=== PATIENT | female | born 1955 | race Caucasian/White ===

== ENCOUNTER 2022-02-27 12:49 | Outpatient (CLI) | payer BC, SELFPAY ==
--- OUTSIDE RECORDS SUMMARY | 2022-02-27 12:50 | XMS_ITS | Encounter Summary ---
:1955 Author Organization [place] Address [address] [place] [address] Care Team Providers Name Role Phone Delroy Frederick MD Primary Care Provider Reason for Referral Diagnostic Imaging Mammo (Routine) - Pending Review Specialty Diagnoses / Procedures Referred By Contact Refer red To Contact Diagnoses Other screening mammogram Cait Sams MD Procedures MA Screen Bilateral w/Christopher [facility] [address] [place] [address] Referral ID Status Reason Start Date Expiration Date Visits V isits Requested Authorized [id number] Pending 05/19/2021 05/19/2022 1 1 Review ATE CHANGE ANALYST Reason for Visit Diagnostic Imaging Mammo (Routine) - Pending Review Specialty Diagnoses / Procedures Referred By Contact Refer red To Contact Diagnoses Other screening mammogram Cait Sams MD Procedures MA Screen Bilateral w/Christopher [facility] [address] [place] [address] Referral ID Status Reason Start Date Expiration Date Visits V isits Requested Authorized [id number] Pending 05/19/2021 05/19/2022 1 1 Review Encounter Details Date Type Department Care Team Description 07/02/2021 Hospital Encounter [facility] Cait Jiménez [facility] Breast [place] MD Abhijit mammogram [address] [facility] [address] CONSULT [place], [place] [address] [address] [place] [address] [place] [address] Social History Tobacco Use Types Packs/Day Years Used Date Never Assessed Sex Assigned at Date Recorded Not on file COVID-19 Exposure Response Date Recorded In the last month, have you been in contact with No / Unsure 07/02/2021 8:12 AM CLIMATE CHANGE ANALYST someone who was confirmed or suspected to have Coronavirus / COVID-19? documented as of this encounter Plan of Treatment Not on filedocumented as of this encounter Procedures Procedure Name Priority Date/Time Associated Diagnosis Comme nts MA SCREENING Routine 07/02/2021 8:34 AM Other screening Result s for this BILATERAL W/ CHRISTOPHER CLIMATE CHANGE ANALYST mammogram procedure are in the results section. documented in this encounter Results MA Screen Bilateral w/Christopher (07/02/2021 8:34 AM CLIMATE CHANGE ANALYST) Anatomical Region Laterality Modality Breast Bilateral Mammography Specimen (Source) Anatomical Location Collection Method / Collectio n Time Received Time / Laterality Volume Narrative 07/02/2021 10:02 AM CLIMATE CHANGE ANALYST BILATERAL FULL FIELD DIGITAL SCREENING MAMMOGRAM WITH TOMOSYNTHESIS Performed on: 07/02/21 Compared to: 05/13/2020, 02/09/2017, 08/2014, and 05/19/2012 Technique: ??This study was evaluated wi th the assistance of Computer-Aided Detection. ??Breast Tomosynthesis was us ed in interpretation. Findings: The breasts are heterogeneousl y dense, which may obscure small masses. ??There is no radiographic evide nce of malignancy. IMPRESSION: ACR BI-RADS Category 1: Nega tive RECOMMENDED FOLLOW-UP: Annual routine sc reening mammogram The results and recommendations of this examination will be communicated to the patient. Cait Sams MD IMG MAMMOGRAPHY ORDERABLES documented in this encounter Visit Diagnoses Diagnosis Other screening mammogram documented in this encounter Care Teams Piece Marker Small Arms Relationship Specialty Start Date End Date Delroy Frederick MD PCP - General Family Practice 04/15/11 [facility] [address] [place] [address] documented as of this encounter
--- OUTSIDE RECORDS SUMMARY | 2022-02-27 12:50 | XMS_ITS | Encounter Summary ---
:1955 Author Organization [place] Address [address] [place] [address] Care Team Providers Name Role Phone Delroy Frederick MD Primary Care Provider Encounter Details Date Type Department Care Team Description 07/02/2021 Travel Social History Tobacco Use Types Packs/Day Years Used Date Never Assessed Sex Assigned at Date Recorded Not on file COVID-19 Exposure Response Date Recorded In the last month, have you been in contact with No / Unsure 07/02/2021 8:12 AM SOURCING COORDINATOR someone who was confirmed or suspected to have Coronavirus / COVID-19? documented as of this encounter Plan of Treatment Not on filedocumented as of this encounter Visit Diagnoses Not on filedocumented in this encounter Care Teams Order Department Supervisor Relationship Specialty Start Date End Date Delroy Frederick MD PCP - General Family Practice 04/15/11 [facility] [address] [place] [address] documented as of this encounter
--- OUTSIDE RECORDS SUMMARY | 2022-02-27 12:51 | XMS_ITS | Encounter Summary ---
:1955 Author Organization [place] Address [address] [place] [address] Care Team Providers Name Role Phone Delroy Frederick MD Primary Care Provider Encounter Details Date Type Department Care Team Description 05/13/2020 Travel Social History Tobacco Use Types Packs/Day Years Used Date Never Assessed Sex Assigned at Date Recorded Not on file COVID-19 Exposure Response Date Recorded In the last month, have you been in contact with No / Unsure 05/13/2020 1:59 PM GENERAL TELLER someone who was confirmed or suspected to have Coronavirus / COVID-19? documented as of this encounter Plan of Treatment Not on filedocumented as of this encounter Visit Diagnoses Not on filedocumented in this encounter Care Teams Title Searcher Relationship Specialty Start Date End Date Delroy Frederick MD PCP - General Family Practice 04/15/11 [facility] [address] [place] [address] documented as of this encounter
--- OUTSIDE RECORDS SUMMARY | 2022-02-27 12:51 | XMS_ITS | Encounter Summary ---
:1955 Author Organization [place] Address [address] [place] [address] Care Team Providers Name Role Phone Unavailable Primary Care Provider Unavailable Encounter Details Date Type Department Care Team Description 12/09/2007 Results [facility] Cait Sams MD Hospital Results [facility] [address] [place] [address] (Wo rk) Social History Tobacco Use Types Packs/Day Years Used Date Never Assessed Sex Assigned at Date Recorded Not on file documented as of this encounter Plan of Treatment Not on filedocumented as of this encounter Procedures Procedure Name Priority Date/Time Associated Comments Diagnosis C LT SONO BREAST Routine 12/09/2007 9:36 AM Resul ts for this CDT procedure are i n the results section. HC CAD, DIAGNOSTIC Routine 12/09/2007 8:43 AM Res ults for this MAMMO, W/WO CDT procedure are i n DIGITIZATION the results section. documented in this encounter Results LT SONO BREAST (12/09/2007 9:36 AM CDT) Specimen (Source) Anatomical Collection Method Collection Time Re ceived Time Location / / Volume Laterality 12/09/2007 9:36 AM CDT Impressions RADIOLOGY RESULTS - 12/11/2007 9:57 AM C DT DIAGNOSTIC MAMMOGRAM, BILATERAL; ULTRASOUND LEFT BREAST - 12/09/2007 HISTORY: Pain upper outer left breast. COMPARISON: No prior comparisons. FINDINGS: Breast parenchyma is heterogen eously dense. Routine mammographic views demonstrate a BB over lying the area of the patient's pain upper outer quadrant left breast. No suspicious mammographic abnormalities are appreciat ed in either breast. Ultrasound examination in the area of th e patient's pain demonstrates no underlying cyst, mass or area of post erior acoustic shadowing. Findings discussed with the patient at t he time of the exam. The patient is to follow up with primary phy sician for further followup of left breast pain. Followup screening lara mogram recommended in one year. IMPRESSION: BI-RADS 1, NEGATIVE Cait Sams MD SPECIAL IMAGING STUDIES Performing Organization Address [facility] Phon e Number RADIOLOGY RESULTS COMPUTER AIDED MAMMOGRAPHY, DIAGNOSTIC (12/09/2007 8:43 AM CDT) Specimen (Source) Anatomical Collection Method Collection Time Re ceived Time Location / / Volume Laterality 12/09/2007 8:43 AM CDT Impressions RADIOLOGY RESULTS - 12/11/2007 9:57 AM C DT DIAGNOSTIC MAMMOGRAM, BILATERAL; ULTRASOUND LEFT BREAST - 12/09/2007 HISTORY: Pain upper outer left breast. COMPARISON: No prior comparisons. FINDINGS: Breast parenchyma is heterogen eously dense. Routine mammographic views demonstrate a BB over lying the area of the patient's pain upper outer quadrant left breast. No suspicious mammographic abnormalities are appreciat ed in either breast. Ultrasound examination in the area of th e patient's pain demonstrates no underlying cyst, mass or area of post erior acoustic shadowing. Findings discussed with the patient at t he time of the exam. The patient is to follow up with primary phy sician for further followup of left breast pain. Followup screening lara mogram recommended in one year. IMPRESSION: BI-RADS 1, NEGATIVE Cait Sams MD MAMMOGRAPHY Performing Organization Address [facility] Phon e Number RADIOLOGY RESULTS documented in this encounter Visit Diagnoses Not on filedocumented in this encounter
--- OUTSIDE RECORDS SUMMARY | 2022-02-27 12:51 | XMS_ITS | Encounter Summary ---
:1955 Author Organization [place] Address [address] [place] [address] Care Team Providers Name Role Phone Delroy Frederick MD Primary Care Provider Reason for Visit (Routine) - Closed Specialty Diagnoses / Procedures Referred By Contact Refer red To Contact Radiology / Radiology. Procedures Breast Center MA SCREENING BILATERAL [address] [place] [address] Phone: Fax: Referral ID Status Reason Start Date Expiration Date Visits Requ ested Visits Authorized [id number] Closed 01/27/2017 01/27/2018 1 1 Encounter Details Date Type Department Care Team Description 02/09/2017 Hospital Encounter [facility] Cait Sams for screening [facility] Breast [place] MD Abhijit mammogram [address] [facility] [address] CONSULT [place], [place] [address] [address] [place] [address] [place] [address] Social History Tobacco Use Types Packs/Day Years Used Date Never Assessed Sex Assigned at Date Recorded Not on file documented as of this encounter Plan of Treatment Not on filedocumented as of this encounter Procedures Procedure Name Priority Date/Time Associated Diagnosis Comme nts MA SCREENING Routine 02/09/2017 11:21 AM Visit for screening R esults for this BILATERAL W/ CHRISTOPHER CDT mammogram procedure are in the results section. documented in this encounter Results MA Screen Bilateral w/Christopher (02/09/2017 11:21 AM CDT) Anatomical Region Laterality Modality Breast Bilateral Mammography Specimen (Source) Anatomical Location Collection Method / Collectio n Time Received Time / Laterality Volume Impressions 02/09/2017 11:29 AM CDT IMPRESSION: BI-RADS CATEGORY: 1 - ??NEGATIVE. RECOMMENDED FOLLOW-UP: Annual Mammograph y. The patient will be notified of the resu lts. WHITNEY KNOX MD Narrative 02/09/2017 11:29 AM CDT Examination: Bilateral digital screening mammography with computer aided detection including digital breast tomosynthesis, 02/09/2017 11:21 AM. Comparison: 05/16/2015, 04/16/2011 History: No current breast concerns. Mot her and sister with breast cancer. BREAST DENSITY: Scattered fibroglandular densities. COMMENTS: ??No suspicious finding. Procedure Note Whitney Knox MD - 02/09/2017 Examination: Bilateral digital screening mammography with computer aided detection including digital breast tomosynthesis, 02/09/2017 11:21 AM. Comparison: 05/16/2015, 04/16/2011 History: No current breast concerns. Mot her and sister with breast cancer. BREAST DENSITY: Scattered fibroglandular densities. COMMENTS: No suspicious finding. IMPRESSION: BI-RADS CATEGORY: 1 - NEGATI VE. RECOMMENDED FOLLOW-UP: Annual Mammograph y. The patient will be notified of the resu lts. WHITNEY KNOX MD Cait Sams MD IMG MAMMOGRAPHY ORDERABLES documented in this encounter Visit Diagnoses Diagnosis Visit for screening mammogram Other screening mammogram documented in this encounter Care Teams Operations Administrative Assistant Relationship Specialty Start Date End Date Delroy Frederick MD PCP - General Family Practice 04/15/11 [facility] [address] [place] [address] documented as of this encounter
--- OUTSIDE RECORDS SUMMARY | 2022-02-27 12:51 | XMS_ITS | Encounter Summary ---
:1955 Author Organization [place] Address [facility] [place] [address] Care Team Providers Name Role Phone Delroy Frederick MD Primary Care Provider Encounter Details Date Type Department Care Team Description 04/15/[address] [facility] Ofe Mon (Primary Dx) Breast Center [address] [facility], [address] [place] [address] Social History Tobacco Use Types Packs/Day Years Used Date Never Assessed Sex Assigned at Date Recorded Not on file documented as of this encounter Plan of Treatment Not on filedocumented as of this encounter Visit Diagnoses Diagnosis Mastodynia - Primary documented in this encounter Care Teams Post Form Remover Relationship Specialty Start Date End Date Delroy Frederick MD PCP - General Family Practice 04/15/11 [facility] [address] [place] [address] documented as of this encounter
--- OUTSIDE RECORDS SUMMARY | 2022-02-27 12:51 | XMS_ITS | Encounter Summary ---
:1955 Author Organization [place] Address [address] [place] [address] Care Team Providers Name Role Phone Delroy Frederick MD Primary Care Provider Reason for Referral Diagnostic Imaging Mammo (Routine) - Closed Specialty Diagnoses / Procedures Referred By Contact Refer red To Contact Diagnoses Visit for screening mammogram Cait Sams MD Procedures MA Screen Bilateral w/Christopher [facility] [address] [place] [address] Referral ID Status Reason Start Date Expiration Date Visits Requ ested Visits Authorized [id number] Closed 04/17/2020 04/17/2021 1 1 SITE PROJECT MANAGER Reason for Visit Diagnostic Imaging Mammo (Routine) - Closed Specialty Diagnoses / Procedures Referred By Contact Refer red To Contact Diagnoses Visit for screening mammogram Cait Sams MD Procedures MA Screen Bilateral w/Christopher [facility] [address] [place] [address] Referral ID Status Reason Start Date Expiration Date Visits Requ ested Visits Authorized [id number] Closed 04/17/2020 04/17/2021 1 1 Encounter Details Date Type Department Care Team Description 05/13/2020 Hospital Encounter [facility] Cait Sams it for screening [facility] Breast [place] MD Abhijit mammogram [address] [place] [address] [address] [place] [address] [place] [address] Social History Tobacco Use Types Packs/Day Years Used Date Never Assessed Sex Assigned at Date Recorded Not on file COVID-19 Exposure Response Date Recorded In the last month, have you been in contact with No / Unsure 05/13/2020 1:59 PM WEB SITE PROJECT MANAGER someone who was confirmed or suspected to have Coronavirus / COVID-19? documented as of this encounter Plan of Treatment Not on filedocumented as of this encounter Procedures Procedure Name Priority Date/Time Associated Diagnosis Comme nts MA SCREENING Routine 05/13/2020 2:32 PM Visit for screening Re sults for this BILATERAL W/ CHRISTOPHER WEB SITE PROJECT MANAGER mammogram procedure are in the results section. documented in this encounter Results MA Screen Bilateral w/Christopher (05/13/2020 2:32 PM WEB SITE PROJECT MANAGER) Anatomical Region Laterality Modality Breast Bilateral Mammography Specimen (Source) Anatomical Location Collection Method / Collectio n Time Received Time / Laterality Volume Impressions 05/13/2020 3:46 PM WEB SITE PROJECT MANAGER IMPRESSION: BI-RADS CATEGORY: 1 - ??Negative RECOMMENDED FOLLOW-UP: Annual Mammograph y. Exam results letter mailed to patient. MARCO ANTONIO MORGAN MD Narrative 05/13/2020 3:46 PM WEB SITE PROJECT MANAGER SCREENING MAMMOGRAM, BILATERAL, DIGITAL w/CAD AND TOMOSYNTHESIS - 05/13/2020 2:32 PM BREAST SYMPTOMS: No current breast compl aints. COMPARISON: ??02/09/2017, 05/20/2012. BREAST DENSITY: Heterogeneously dense. COMMENTS: No findings of suspicion for m alignancy. Procedure Note Marco Antonio Morgan MD - 05/13/2020For matting of this note might be different from the original. SCREENING MAMMOGRAM, BILATERAL, DIGITAL w/CAD AND TOMOSYNTHESIS - 05/13/2020 2:32 PM BREAST SYMPTOMS: No current breast compl aints. COMPARISON: 02/09/2017, 05/20/2012. BREAST DENSITY: Heterogeneously dense. COMMENTS: No findings of suspicion for m alignancy. IMPRESSION: BI-RADS CATEGORY: 1 - Negati ve RECOMMENDED FOLLOW-UP: Annual Mammograph y. Exam results letter mailed to patient. MARCO ANTONIO MORGAN MD Cait Sams MD IMG MAMMOGRAPHY ORDERABLES documented in this encounter Visit Diagnoses Diagnosis Visit for screening mammogram Other screening mammogram documented in this encounter Care Teams Center Human Resources Manager Relationship Specialty Start Date End Date Delroy Frederick MD PCP - General Family Practice 04/15/11 [facility] [address] [place] [address] documented as of this encounter
--- OUTSIDE RECORDS SUMMARY | 2022-02-27 12:51 | XMS_ITS | Encounter Summary ---
:1955 Author Organization [place] Address [address] [place] [address] Care Team Providers Name Role Phone Delroy Frederick MD Primary Care Provider Reason for Visit (Routine) - Closed Specialty Diagnoses / Procedures Referred By Contact Refer red To Contact Radiology / Radiology. Diagnoses prev epic christopher info given Breast Center Procedures MA SCREENING DIGITAL BILATERAL [address] [place] [address] Phone: Fax: Referral ID Status Reason Start Date Expiration Date Visits Requ ested Visits Authorized [id number] Closed 05/15/2015 05/02/2016 1 1 Encounter Details Date Type Department Care Team Description 05/16/2015 Hospital Encounter [facility] Cait Sams for screening [facility] Breast [place] MD Abhijit mammogram [address] [facility] [address] CONSULT [place], [place] [address] [place] [address] [place] [address] [place] [address] Social History Tobacco Use Types Packs/Day Years Used Date Never Assessed Sex Assigned at Date Recorded Not on file documented as of this encounter Plan of Treatment Not on filedocumented as of this encounter Procedures Procedure Name Priority Date/Time Associated Diagnosis Comme nts MA SCREENING Routine 05/16/2015 9:29 AM Visit for screening Re sults for this BILATERAL W/ CHRISTOPHER ANKLE PATCH MOLDER mammogram procedure are in the results section. documented in this encounter Results MA Screen Bilateral w/Christopher (05/16/2015 9:29 AM ANKLE PATCH MOLDER) Anatomical Region Laterality Modality Breast Bilateral Mammography Specimen (Source) Anatomical Location Collection Method / Collectio n Time Received Time / Laterality Volume Impressions 05/16/2015 9:54 AM ANKLE PATCH MOLDER IMPRESSION: BI-RADS CATEGORY: 1 - ??NEGATIVE. RECOMMENDED FOLLOW-UP: Annual Mammograph y Exam results letter mailed to patient. HILDA KHAN MD Narrative 05/16/2015 9:54 AM ANKLE PATCH MOLDER SCREENING MAMMOGRAM, BILATERAL, DIGITAL w/CAD w/TOMOSYNTHESIS - 05/16/2015 9:29 AM. BREAST SYMPTOMS: No current breast compl aints. COMPARISON: ??05/20/12, 01/31/10. BREAST DENSITY: Extremely dense. COMMENTS: No findings of suspicion for m alignancy. ? Procedure Note Hilda Khan MD - 5 SCREENING MAMMOGRAM, BILATERAL, DIGITAL w/CAD w/TOMOSYNTHESIS - 05/16/2015 9:29 AM. BREAST SYMPTOMS: No current breast compl aints. COMPARISON: 05/20/12, 01/31/10. BREAST DENSITY: Extremely dense. COMMENTS: No findings of suspicion for m alignancy. IMPRESSION IMPRESSION: BI-RADS CATEGORY: 1 - NEGATI VE. RECOMMENDED FOLLOW-UP: Annual Mammograph y Exam results letter mailed to patient. HILDA KHAN MD Cait Sams MD IMG MAMMOGRAPHY ORDERABLES documented in this encounter Visit Diagnoses Diagnosis Visit for screening mammogram Other screening mammogram documented in this encounter Care Teams Public Welfare Worker Relationship Specialty Start Date End Date Delroy Frederick MD PCP - General Family Practice 04/15/11 [facility] [address] [place] [address] documented as of this encounter
--- OUTSIDE RECORDS SUMMARY | 2022-02-27 12:51 | XMS_ITS | Encounter Summary ---
:1955 Author Organization [place] Address [address] [place] [address] Care Team Providers Name Role Phone Delroy Frederick MD Primary Care Provider Reason for Visit (Routine) - Closed Specialty Diagnoses / Procedures Referred By Contact Refer red To Contact Radiology Diagnoses US BREAST UNI LEFT* Procedure Notes: Left breast and axillary pain. Breast Center Procedures RADIOLOGY [address], [address] [place], [place] [address] Phone: Fax: Referral ID Status Reason Start Date Expiration Date Visits Requ ested Visits Authorized [id number] Closed 04/15/2011 04/14/2012 1 1 Encounter Details Date Type Department Care Team Description 04/16/[address] [facility] Cait stuart MD Mastodynia Breast Center [facility] [address] CON[address] [address] [place] [phone] [address] (Wo rk) Social History Tobacco Use Types Packs/Day Years Used Date Never Assessed Sex Assigned at Date Recorded Not on file documented as of this encounter Plan of Treatment Not on filedocumented as of this encounter Procedures Procedure Name Priority Date/Time Associated Diagnosis Comme nts US BREAST LT Routine 04/16/2011 11:19 AM Mastodynia Results for this CDT procedure are i n the results section . documented in this encounter Results US breast lt* (04/16/2011 11:19 AM CDT) Anatomical Region Laterality Modality Breast Left Ultrasound Specimen (Source) Anatomical Collection Method Collection Time Re ceived Time Location / / Volume Laterality 04/16/2011 11:19 AM CDT Impressions 04/16/2011 12:05 PM CDT DIAGNOSTIC MAMMOGRAM BILATERAL DIGITAL w /CAD ?? ULTRASOUND LEFT ??BREAST ??April 16 011. HISTORY: Tenderness extending from the l eft axilla to the 6:00 position of the left breast. COMPARISON: ??01/31/2010. 12/20/2006. BREAST PARENCHYMA: ??Extremely dense. ?? Mammography compromised. FINDINGS: Bilateral mammogram is normal. No mammographic or sonographic abnormality identified in th e outer left breast from the axilla to the 6:00 position in the regio n of pain. Any further evaluation should be based on clinical f indings and clinical suspicion. IMPRESSION: BI-RADS-1. ??NEGATIVE. Cait Sams MD IMG US ORDERABLES documented in this encounter Visit Diagnoses Diagnosis Mastodynia documented in this encounter Care Teams Glass Finisher Relationship Specialty Start Date End Date Delroy Frederick MD PCP - General Family Practice 04/15/11 [facility] [address] [place] [address] documented as of this encounter
--- OUTSIDE RECORDS SUMMARY | 2022-02-27 12:51 | XMS_ITS | Encounter Summary ---
:1955 Author Organization [place] Address [facility] [place] [address] Care Team Providers Name Role Phone Unavailable Primary Care Provider Unavailable Encounter Details Date Type Department Care Team Description 09/21/2009 Emergency room [facility] Sarah Chavira MD [facility] Results [facility] [address] [place], [place] [id number] (Wo rk) Social History Tobacco Use Types Packs/Day Years Used Date Never Assessed Sex Assigned at Date Recorded Not on file documented as of this encounter Progress Notes Fany Chavira - 10/04/2009 6:41 PM CDT FINAL CHIEF COMPLAINT: Toe pain. HISTORY OF PRESENT ILLNESS: Toshia Landin is a 54-year-old female who says that she has an ingrown toenail. She says she was trying to get some of the nail out but now it has become more swollen andpainful. She says it is her right first toe on the more lateral aspect of it. She has not noticed any discharge from it. No fevers or chills and no other toes that are bothering her. REVIEW OF SYSTEMS: All other systems reviewed and negative. PAST MEDICAL HISTORY: Hypothyroidism and mitral valve prolapse. MEDICATIONS: Synthroid. ALLERGIES: Penicillin. SOCIAL HISTORY: She is a nonsmoker, occasional alcohol use, no drug use. PHYSICAL EXAMINATION: VITAL SIGNS: Blood pressure 138/76, pulse 77, respirations 16, temperature 97.5 and pulse oximetry 98% on room air. EXTREMITIES: On examination of her right foot, there is swelling over the more lateral aspect of the toe in the region of the distal toe consistent with an ingrown toenail and there is some swelling that is pressing into this part of the skin. She does have pain over this area. There is some mild redness. There is no discharge or streaking up the leg. There is no pain or swelling on the more medial aspect of the first toe. There are no other problems in the rest of the toes. There isgood dorsalis pedis and posterior tibial pulse on the right foot, normal range of motion of the ankle, knee and hip. Left leg has a normal exam. HOSPITAL COURSE: I did talk to her about removing a small aspect of the lateral aspect of the nail to help remove this toenail which will help the symptoms and she did agree to this. The patient's toedid have an additional block done with 0.5% bupivacaine, approximately 3 cc was used. She was still having some pain, so another block was done with lidocaine 1% and she did have good anesthesia. At this point, a small portion of the lateral aspect of the nail was removed and we removed the ingrown portion. The area was cleaned out. There was no purulent drainage. It was then cleaned and dressed withantibiotic ointment and a gauze dressing. I will put her on Keflex for infection and Percocet for pain. She should keep it clean and dry and have the wound rechecked in the next week. Return if increasing pain, swelling, fever or redness. ASSESSMENT: Right first toe ingrown toenail. Electronically signed on 10/04/2009 18:41 by FANY CHAVIRA MD MT: [id number] Name: TOSHIA LANDIN Account: [id number] : 1955 Visit Date: 09/21/2009 Document: [id number] documented in this encounter Plan of Treatment Not on filedocumented as of this encounter Visit Diagnoses Not on filedocumented in this encounter
--- OUTSIDE RECORDS SUMMARY | 2022-02-27 12:51 | XMS_ITS | Encounter Summary ---
:1955 Author Organization [place] Address [address] [place] [id number] Care Team Providers Name Role Phone Delory Frederick MD Primary Care Provider Reason for Visit (Routine) - Closed Specialty Diagnoses / Procedures Referred By Contact Refer red To Contact Radiology Diagnoses DIAG BILATERAL-DIGITAL Procedure Notes: Left breast and axillary pain. Breast Center Procedures RADIOLOGY [address], [address] [place], [place] [address] Phone: Fax: Referral ID Status Reason Start Date Expiration Date Visits Requ ested Visits Authorized [id number] Closed 04/15/2011 04/14/2012 1 1 Encounter Details Date Type Department Care Team Description 04/16/2011 Hospital Encounter [facility] Cait stuart MD Mastodynia Breast Center [facility] [address] [phone] [place] [phone] (Wo rk) Social History Tobacco Use Types Packs/Day Years Used Date Never Assessed Sex Assigned at Date Recorded Not on file documented as of this encounter Plan of Treatment Not on filedocumented as of this encounter Procedures Procedure Name Priority Date/Time Associated Comments Diagnosis MA DIAGNOSTIC Routine 04/16/2011 11:26 AM Mastodynia Results for this DIGITAL BILATERAL CDT procedure are in the results section. documented in this encounter Results Mammo diagnostic digital (bilateral)* (04/16/2011 11:26 AM CDT) Anatomical Region Laterality Modality Breast Bilateral Mammography Specimen (Source) Anatomical Collection Method Collection Time Re ceived Time Location / / Volume Laterality 04/16/2011 11:26 AM CDT Impressions 04/16/2011 12:05 PM CDT [...] IMPRESSION: BI-RADS-1. ??NEGATIVE. Cait Sams MD IMG MAMMOGRAPHY ORDERABLES documented in this encounter Visit Diagnoses Diagnosis Mastodynia documented in this encounter Care Teams Electrotype Finisher Relationship Specialty Start Date End Date Delroy Frederick MD PCP - General Family Practice 04/15/11 [facility] [address] [place] [address] documented as of this encounter
--- OUTSIDE RECORDS SUMMARY | 2022-02-27 12:51 | XMS_ITS | Encounter Summary ---
:1955 Author Organization [place] Address [facility] [place] [address] Care Team Providers Name Role Phone Delroy Frederick MD Primary Care Provider Reason for Visit (Routine) - Closed Specialty Diagnoses / Procedures Referred By Contact Refer red To Contact Radiology Diagnoses SCREENING BILATERAL-DIGITAL Procedure Notes: Routine. Breast Center Procedures RADIOLOGY [address], [address] [place], [place] [address] Phone: Fax: Referral ID Status Reason Start Date Expiration Date Visits Requ ested Visits Authorized [id number] Closed 05/19/2012 05/19/2013 1 1 Encounter Details Date Type Department Care Team Description 05/20/2012 Hospital Encounter [facility] Cait stuart MD Breast Center [facility] [address] [place] [phone] [place] [phone] (Wo rk) Social History Tobacco Use Types Packs/Day Years Used Date Never Assessed Sex Assigned at Date Recorded Not on file documented as of this encounter Plan of Treatment Not on filedocumented as of this encounter Visit Diagnoses Not on filedocumented in this encounter Care Teams Supervisor Type Photography Relationship Specialty Start Date End Date Delroy Frederick MD PCP - General Family Practice 04/15/11 [facility] [address] [place], [place] [phone] documented as of this encounter
[2022-02-27 17:50] LABS: Chloride* 102 mmol/L (96-114)
[2022-02-27 17:51] LABS: Potassium* 4.3 mmol/L (3.6-5.1); Sodium* 137 mmol/L (135-149)
[2022-02-27 17:53] LABS: Creatinine* 0.6 mg/dL (0.5-1.5); Estimated Glomerular Filt Rate 99 ml/min
[2022-02-27 17:54] LABS: Blood Urea Nitrogen* 13 mg/dL (7-30); Calcium* 9.4 mg/dL (8.4-10.6); Carbon Dioxide* 28 mmol/L (20-32); Glucose* 104 mg/dL (60-115)
[2022-02-27 18:25] LABS: TSH With Reflex to FT4* 0.197 uIU/mL (0.270-4.200)
[2022-02-27 18:37] LABS: SARS PCR* Negative SARS-CoV-2 (Negative)
[2022-02-27 21:25] LABS: Free T4 Free Thyroxine* 1.66 ng/dL (0.70-1.85)
== END 2022-02-27 12:50 | disposition home or self-care (01) ==
PROVIDERS: PCP Family Medicine; Visit Provider Family Medicine
DX: Z01.818 Encounter for other preprocedural examination (principal); E03.9 Hypothyroidism, unspecified; Z20.822 Contact with and (suspected) exposure to COVID-19
CPT/HCPCS: 80048; 84439; 84443; 87635

== ENCOUNTER 2023-08-09 09:37 | Outpatient (CLI) | payer BC, SELFPAY | END 2023-08-09 09:38 | disposition home or self-care (01) | PROVIDERS: PCP Family Medicine; Visit Provider Internal Medicine Cardiovascular Disease | DX: R00.2 Palpitations (principal); I49.1 Atrial premature depolarization | CPT/HCPCS: 93306 ==

== ENCOUNTER 2024-07-10 13:45 | Outpatient (CLI) | payer BC, SELFPAY | END 2024-07-10 13:46 | disposition home or self-care (01) | PROVIDERS: PCP Family Medicine; Visit Provider Family Medicine | DX: E03.9 Hypothyroidism, unspecified (principal); Z13.21 Encounter for screening for nutritional disorder; Z13.1 Encounter for screening for diabetes mellitus; Z13.6 Encounter for screening for cardiovascular disorders; L40.9 Psoriasis, unspecified | CPT/HCPCS: 80048; 80061; 82607; 84439; 84443 ==